=== PATIENT | female | born 1985 | race Two or more races ===

== ENCOUNTER 2018-12-31 00:33 | Emergency (ER) | payer MEDICAID, OTHER ==
[~2018-12-31] VITALS: Ht 172.7 cm; Wt 63.5 kg
[2018-12-31 00:44] VITALS: BP 90/56
== END 2018-12-31 02:32 | disposition left against medical advice (07) ==
LOC: ER 00:33
DX: R55 Syncope and collapse (principal); Z53.21 Procedure and treatment not carried out due to patient leaving prior to being seen by health care provider